=== PATIENT | male | born 1990 | race Caucasian/White ===

== ENCOUNTER 2020-05-19 14:06 | Emergency (ER) | payer MEDICAID ==
--- NOTE | 2020-05-19 14:38 | EDM.PDOC ---
ED HPI GENERAL MEDICAL PROBLEM - General Chief Complaint: Chest Pain Stated Complaint: CHEST PAIN AND BODY TINGLING Time Seen by Provider: 05/19/20 14:09 Source of Information: Reports: Patient History Limitations: Reports: No Limitations - History of Present Illness INITIAL COMMENTS - FREE TEXT/NARRATIVE: Patient is a 30-year-old male presenting to the emergency department with complaints of left shoulder, left upper back, and left upper chest pain and tightness since Saturday. He also complains of transient tingling throughout his body which he states comes and goes. He denies any shortness of breath, diaphoresis, nausea, or vomiting associated with this. He describes the pain as a tightness in his shoulder, chest, and back. If he lifts his left arm up it alleviates some of the tightness. He denies any known injury. He has not been doing any heavy lifting or strenuous activities that he can think of. He has no significant cardiac history, however he does have a family history of MIs. Left Chest Pain Score (Numeric/FACES): 2 - Related Data Allergies Allergy/AdvReac Type Severity Reaction Status Date / Time Penicillins Allergy Airway Verified 05/19/20 14:16 Tightness Sulfa (Sulfonamide Allergy Cannot Verified 05/19/20 14:16 Antibiotics) Remember Home Meds: Home Meds . [No Known Home Meds] 05/19/20 [History] Past Medical History - Past Surgical History Musculoskeletal Surgical History: Reports: Other (See Below) Other Musculoskeletal Surgeries/Procedures:: L wrist sx Social & Family History - Family History Family Medical History: Noncontributory - Tobacco Use Tobacco Use Status *Q: Never Tobacco User - Caffeine Use Caffeine Use: Reports: Coffee, Energy Drinks, Soda, Tea - Recreational Drug Use Recreational Drug Use: No ED ROS GENERAL - Review of Systems Review Of Systems: See Below Constitutional: Reports: No Symptoms HEENT: Reports: No Symptoms Respiratory: Reports: No Symptoms. Denies: Shortness of Breath, Cough Cardiovascular: Reports: Chest Pain. Denies: Dyspnea on Exertion, Lightheadedness, Syncope Endocrine: Reports: No Symptoms GI/Abdominal: Reports: No Symptoms : Reports: No Symptoms Musculoskeletal: Reports: Shoulder Pain (Left), Back Pain (Left upper back) Neurological: Reports: No Symptoms Psychiatric: Reports: No Symptoms Hematologic/Lymphatic: Reports: No Symptoms Immunologic: Reports: No Symptoms ED EXAM, GENERAL - Physical Exam Exam: See Below General Appearance: Alert, WD/WN, No Apparent Distress Respiratory/Chest: No Respiratory Distress, Lungs Clear, Normal Breath Sounds, No Accessory Muscle Use, Other (Tenderness to palpation in the left chest along the line of the fourth intercostal midclavicular line.) Cardiovascular: Normal Peripheral Pulses, Regular Rate, Rhythm, No Edema, No Gallop, No JVD, No Murmur, No Rub GI/Abdominal: Normal Bowel Sounds, Soft, Non-Tender, No Organomegaly, No Distention, No Abnormal Bruit, No Mass Back Exam: Normal Inspection, Full Range of Motion, Other (Tenderness to palpation of the left upper back along the trapezius muscle.) Extremities: Normal Inspection, Normal Range of Motion, Non-Tender, Normal Capillary Refill, No Pedal Edema Neurological: Alert, Oriented, CN II-XII Intact, Normal Cognition, Normal Gait, Normal Reflexes, No Motor/Sensory Deficits Psychiatric: Normal Affect, Normal Mood Skin Exam: Warm, Dry, Intact, Normal Color, No Rash #1 Interpretation EKG Date: 05/19/20 Time: 14:12 Rhythm: NSR Rate (Beats/Min): 67 Hope: Normal P-Wave: Present QRS: Normal ST-T: Normal QT: Normal Course - Vital Signs Last Recorded V/S: Last Vital Signs Temp 97.3 F 05/19/20 14:14 Pulse 72 05/19/20 15:40 Resp 16 05/19/20 15:40 BP 146/92 H 05/19/20 15:40 Pulse Ox 96 05/19/20 15:40 - Orders/Labs/Meds Orders: Active Orders 24 hr Category Date Time Status Chest 2V [CR] Stat Exams 05/19/20 14:14 Taken Labs: Laboratory Tests 05/19/20 05/19/20 05/19/20 Range/Units 14:25 14:25 14:25 WBC 6.93 (4.23-9.07) K/mm3 RBC 4.94 (4.63-6.08) M/mm3 Hgb 14.4 (13.7-17.5) gm/dl Hct 43.1 (40.1-51.0) % MCV 87.2 (79.0-92.2) fl MCH 29.1 (25.7-32.2) pg MCHC 33.4 (32.2-35.5) g/dl RDW Std Deviation 38.3 (35.1-43.9) fL Plt Count 270 (163-337) K/mm3 MPV 10.1 (9.4-12.3) fl Neut % (Auto) 62.1 (34.0-67.9) % Lymph % (Auto) 29.0 (21.8-53.1) % Clayton % (Auto) 7.5 (5.3-12.2) % Eos % (Auto) 0.7 L (0.8-7.0) Baso % (Auto) 0.6 (0.1-1.2) % Neut # (Auto) 4.30 (1.78-5.38) K/mm3 Lymph # (Auto) 2.01 (1.32-3.57) K/mm3 Clayton # (Auto) 0.52 (0.30-0.82) K/mm3 Eos # (Auto) 0.05 (0.04-0.54) K/mm3 Baso # (Auto) 0.04 (0.01-0.08) K/mm3 D-Dimer, Quantitative < 0.19 L (0.19-0.50) mg/L Sodium 140 (136-145) mEq/L Potassium 4.1 (3.5-5.1) mEq/L Chloride 103 (98-107) mEq/L Carbon Dioxide 26 (21-32) mEq/L Anion Gap 15.1 H (5-15) BUN 16 (7-18) mg/dL Creatinine 1.3 (0.7-1.3) mg/dL Est Cr Clr Drug Dosing 87.69 mL/min Estimated GFR (MDRD) > 60 (>60) mL/min BUN/Creatinine Ratio 12.3 L (14-18) Glucose 101 (74-106) mg/dL Calcium 8.8 (8.5-10.1) mg/dL Total Bilirubin 1.0 (0.2-1.0) mg/dL AST 22 (15-37) U/L ALT 40 (16-63) U/L Alkaline Phosphatase 44 L (46-116) U/L Troponin I < 0.017 (0.00-0.056) ng/mL C-Reactive Protein 0.5 (<1.0) mg/dL Total Protein 8.0 (6.4-8.2) g/dl Albumin 4.2 (3.4-5.0) g/dl Globulin 3.8 gm/dL Albumin/Globulin Ratio 1.1 (1-2) - Re-Assessments/Exams Free Text/Narrative Re-Assessment/Exam: 05/19/20 15:32 Patient's work-up was grossly unremarkable. EKG showed a normal sinus rhythm at 67. Chest x-ray was negative for any acute abnormalities. Hematology was grossly unremarkable. Troponin was negative, D-dimer was negative. Discussed with patient that his pain is likely musculoskeletal in nature. Recommend intermittent Tylenol and ibuprofen as needed for pain. Applying heat to the area may also help. Discharge instructions as documented. Departure - Departure Time of Disposition: 15:33 Disposition: Home, Self-Care 01 Condition: Good Clinical Impression: Atypical chest pain Instructions: Chest Wall Pain, [id number] Referrals: PCP,None [Primary Care Provider] - Forms: ED Department Discharge Additional Instructions: You were seen in the emergency department today for tightness to the left chest, left shoulder, and left upper back. Your work-up included a chest x-ray, EKG of your heart, and blood work. Your work-up was found to be completely normal. You are not having a heart attack and there is no signs of blood clots in your lungs. As we discussed, the likely cause you discomfort is musculoskeletal in nature. Recommend [id number] Tylenol and ibuprofen as needed for discomfort. Apply heat to the area may help to release the muscle tightness. If you experience any new or worsening symptoms of concern, please do not hesitate to return to the emergency department for reevaluation. Sepsis Event Note (ED) - Evaluation Sepsis Screening Result: No Definite Risk - Focused Exam Vital Signs: Vital Signs Temp Pulse Resp BP Pulse Ox 05/19/20 15:40 72 16 146/92 H 96 05/19/20 14:14 97.3 F 68 16 158/94 H 98 - My Orders Last 24 Hours: My Active Orders 05/19/20 14:14 Chest 2V [CR] Stat - Assessment/Plan Last 24 Hours: My Active Orders 05/19/20 14:14 Chest 2V [CR] Stat
== END 2020-05-19 15:40 | disposition home or self-care (01) ==
LOC: JD.ED 14:06
DX: R07.89 Other chest pain (principal); Z88.0 Allergy status to penicillin; Z88.2 Allergy status to sulfonamides
CPT/HCPCS: 36415; 71046; 80053; 84484; 85025; 85379; 86140; 93005; 93010; 99283; 99285-25